=== PATIENT | male | born 1975 | race Asian ===

== ENCOUNTER 2024-06-11 08:38 | Day surgery (SDC) | payer OTHER, SELFPAY ==
[2024-06-11 09:04] VITALS: BP 134/84; PULSE 69; RESP 16; TEMP 36.2; O2SAT 98
[2024-06-11] MEDS: LACTATED RINGERS 1,000 ML 42 ML IV (09:14)
--- NOTE | 2024-06-11 09:28 | P.HP_ITS ---
History of Present Illness History of Present Illness Date Patient Seen: 06/11/24 Time Patient Seen: 09:28 Chief complaint: Colonoscopy Narrative: Alberto is a 48-year-old man who presents for a screening colonoscopy. He has never had 1 before. No family history of colon cancer. [facility] Social History Smoking Status: Never smoker Meds Home Medications and Allergies Home Medications Medication Instructions Recorded Confirmed Type simvastatin 20 mg tablet 20 mg PO ONCE PM cholesterol 06/11/24 06/11/24 History Allergies Allergy/AdvReac Type Severity Reaction Status Date / Time Penicillins Allergy Verified 06/11/24 09:03 Exam Vital Signs (past 8 hours): - 06/11/24 09:04 Temperature 97.1 F L Pulse Rate 69 Respiratory Rate 16 Blood Pressure 134/84 Pulse Oximetry 98 Oxygen Delivery Method Room Air Oxygen Delivery Method Room Air Const General: healthy appearing Resp Effort & Inspection: normal respiratory effort Assessment & Plan Assessment and plan (1) Colon cancer screening: Status: Acute Plan We reviewed the risks and benefits of colonoscopy for colon cancer screening and he would like to proceed. Time-Based Coding :: [TOTAL MINUTES] spent with patient and on the chart (including review of chart, obtaining history, exam, reviewing outside data, placing orders, documenting exam and treatment plan, and counseling patient) on [DATE].
[2024-06-11 09:43] VITALS: BP 108/80; PULSE 61; RESP 14; TEMP 36.2; O2SAT 97
--- NOTE | 2024-06-11 09:43 | PM.OP.COLON ---
Operative Date/Time/Diagnoses Date of procedure: 06/11/24 Time of procedure: 09:43 Pre-op diagnosis: Colon cancer screening Post-op diagnosis: same Procedure & Clinicians Study performed: Colonoscopy Same procedure as scheduled: Yes Surgeon: Aaron De La Cruz Procedure Notes Procedure in detail: Surgeon: Aaron De La Cruz MD Anesthesia: Shanti Ruth CRNA Procedure: The patient was brought to the endoscopy suite, placed in left lateral decubitus position. The patient was connected to monitoring devices. A time-out was performed. Sedation was administered. Once the patient was adequately sedated, a digital rectal exam was performed and was normal. The scope was then inserted and advanced to about the sigmoid colon. The prep was inadequate to safely complete the procedure. The procedure was terminated. The patient was awakened and brought to recovery. Scope withdrawal time: Not applicable Sedation time: 4 minutes EBL: 0 Findings: Inadequate prep Post-procedure Disposition: PACU
[2024-06-11 09:48] VITALS: BP 103/80; PULSE 57; RESP 16; O2SAT 96
[2024-06-11 09:52] VITALS: BP 109/75; PULSE 64; RESP 18; O2SAT 98
[2024-06-11 09:57] VITALS: BP 107/75; PULSE 63; RESP 14; O2SAT 99
== END 2024-06-11 10:10 | disposition home or self-care (01) ==
PROVIDERS: PCP Physician Assistant Medical; Referring Provider Surgery; Visit Provider Surgery
PROC: 0DJD8ZZ Inspection of Lower Intestinal Tract, Via Natural or Artificial Opening Endoscopic (ICD-10-PCS; CPT 45378; principal; 2024-06-11 10:00)
DX: Z12.11 Encounter for screening for malignant neoplasm of colon (principal); Z53.09 Procedure and treatment not carried out because of other contraindication
CPT/HCPCS: 45378; J2704

== ENCOUNTER 2024-09-24 10:18 | Day surgery (SDC) | payer OTHER, SELFPAY ==
[2024-09-24 11:09] VITALS: BP 128/81; PULSE 69; RESP 17; TEMP 36.1; O2SAT 96
--- NOTE | 2024-09-24 11:22 | P.HP_ITS ---
History of Present Illness History of Present Illness Date Patient Seen: 09/24/24 Time Patient Seen: 11:22 Chief complaint: Colonoscopy Narrative: Sid is a 49 year old man who attempted a colonoscopy a few months ago the prep was inadequate. He returns for another attempt today. Family history of colon cancer. [facility] Medical History (Updated 09/24/24 @ 11:02 by Bettye Haas RN) History of high cholesterol Social History Smoking Status: Never smoker alcohol intake: current Meds Home Medications and Allergies Home Medications Medication Instructions Recorded Confirmed Type simvastatin 20 mg tablet 20 mg PO ONCE PM cholesterol 06/11/24 09/24/24 History Allergies Allergy/AdvReac Type Severity Reaction Status Date / Time Penicillins Allergy Verified 09/24/24 11:03 Exam Vital Signs (past 8 hours): - 09/24/24 11:09 Temperature 96.9 F L Pulse Rate 69 Respiratory Rate 17 Blood Pressure 128/81 Pulse Oximetry 96 Oxygen Delivery Method Room Air Oxygen Delivery Method Room Air Const General: healthy appearing Assessment & Plan Assessment and plan (1) Colon cancer screening: Status: Acute Plan Colonoscopy Time-Based Coding :: [TOTAL MINUTES] spent with patient and on the chart (including review of chart, obtaining history, exam, reviewing outside data, placing orders, documenting exam and treatment plan, and counseling patient) on [DATE].
--- NOTE | 2024-09-24 12:35 | PM.OP.COLON ---
Operative Date/Time/Diagnoses Date of procedure: 09/24/24 Time of procedure: 12:35 Pre-op diagnosis: Colon cancer screening Post-op diagnosis: same Procedure & Clinicians Study performed: Colonoscopy Same procedure as scheduled: Yes Surgeon: Aaron De La Cruz Procedure Notes Procedure in detail: Surgeon: Aaron De La Cruz MD Anesthesia: Marilee Terrazas MD Procedure: The patient was brought to the endoscopy suite, placed in left lateral decubitus position. The patient was connected to monitoring devices. A time-out was performed. Sedation was administered. Once the patient was adequately sedated, a digital rectal exam was performed and was normal. The scope was then inserted and advanced to the cecum where the appendiceal orifice was identified and photographed. The scope was then slowly withdrawn over greater than 6 minutes. The mucosa was thoroughly inspected. No abnormalities were identified. The scope was retroflexed in the rectum. The scope was straightened and removed. The patient was awakened and brought to recovery. Scope withdrawal time: 10 minutes Sedation time: 17 minutes EBL: 0 Findings: Normal colon Post-procedure Recommendations: Colonoscopy in 10 years Disposition: PACU
[2024-09-24 12:41] VITALS: BP 108/70; PULSE 68; RESP 15; TEMP 35.9; O2SAT 96
[2024-09-24 12:45] VITALS: BP 100/66; PULSE 64; RESP 14; O2SAT 96
[2024-09-24 12:50] VITALS: BP 109/76; PULSE 91; RESP 13; O2SAT 95
[2024-09-24 12:54] VITALS: BP 108/77; PULSE 62; RESP 12; O2SAT 95
[2024-09-24 12:57] VITALS: BP 101/72; PULSE 72; RESP 13; TEMP 36.5; O2SAT 96
== END 2024-09-24 13:13 | disposition home or self-care (01) ==
PROVIDERS: PCP Physician Assistant Medical; Referring Provider Surgery; Visit Provider Surgery
PROC: 0DJD8ZZ Inspection of Lower Intestinal Tract, Via Natural or Artificial Opening Endoscopic (ICD-10-PCS; CPT 45378; principal; 2024-09-24 11:30)
DX: Z12.11 Encounter for screening for malignant neoplasm of colon (principal)
CPT/HCPCS: 45378; J2704